=== PATIENT | female | born 1970 | race Caucasian/White ===

== ENCOUNTER 2020-03-25 12:21 | Emergency (ER) | payer OTHER ==
[~2020-03-25] VITALS: Ht 167.6 cm; Wt 55.0 kg
[2020-03-25 12:38] VITALS: BP 114/58; Ht 167.6 cm; Wt 55.0 kg
== END 2020-03-25 16:02 | disposition left against medical advice (07) ==
LOC: D.ER 12:21
DX: R51.9 Headache, unspecified (principal)